=== PATIENT | male | born 1965 | race Caucasian/White ===

== ENCOUNTER 2019-04-03 07:07 | Day surgery (SDC) | payer BC, OTHER ==
[~2019-04-03] VITALS: Ht 180.3 cm; Wt 69.3 kg
[~2019-04-03 07:07] MED LIST: SYNTHROID
[2019-04-03 07:58] VITALS: Ht 180.3 cm; Wt 69.3 kg
[2019-04-03 08:10] VITALS: BP 143/77; PULSE 104; RESP 16
[2019-04-03] MEDS ORDERED: LIDOCAINE 2% (SDV) 5 ML INJ ONE (08:15)
[2019-04-03] MEDS ORDERED: PROPOFOL 60 ML ONE (08:15)
--- NOTE | 2019-04-03 08:15 | PREAC ---
Date/Time of Note Date/Time of Note DATE: 04/03/19 TIME: 08:13 Anesthesia Eval and Record Evaluation Time Pre-Procedure Interview DATE: 04/03/19 TIME: 08:13 Age 54 Sex male NPO: 8 hrs Preoperative diagnosis Colon screening Planned procedure Colonoscopy Past Medical History Past Medical History: Includes Endo: Hypothyroid Surgery & Anesthesia Issues No known issue Meds Anticoagulation: No Beta David within 24 hr: No Reason Beta David not given: Pt. not on B-David Reported Medications [Synthroid] No Conflict Check 04/03/19 Meds reviewed: Yes Allergies Coded Allergies: Sulfa (Sulfonamide Antibiotics) (Verified Allergy, Intermediate, 04/03/19) Allergies Reviewed: Yes Labs/Studies Labs Reviewed: Reviewed by anesthesiologist test: N/A Studies: ECG Pre-procedure Exam Last vitals BP:112/67, P:67, Spo2:100%, T:98,9 Airway: Adequate mouth opening, Adequate thyromental dist Mallampati: Mallampati II Teeth: Normal Lung: Normal Heart: Normal ASA Physical Status ASA physical status: 2 Emergency: None Planned Anesthetic General/MAC: MAC Planned Pain Management Parenteral pain med Pre-operative Attestations Prior to commencing anesthesia and surgery, the patient was re-evaluated, there was verification of: *The patient's identity *The results of appropriate recent lab work and preoperative vital signs *The above evaluation not changing prior to induction *Anesthetic plan, risk benefits, alternative and complications discussed with patient/family; questions answered; patient/family understands, accepts and wishes to proceed. RAMEZ KEE MD Apr 03, 2019 08:15
--- NOTE | 2019-04-03 08:45 | PAC ---
Date/Time of Note Date/Time of Note DATE: 04/03/19 TIME: 08:44 Post-Anesthesia Notes Post-Anesthesia Note Activity: WNL Respiratory function: WNL Cardiovascular function: WNL Mental status: Baseline Pain reasonably controlled: Yes Hydration appropriate: Yes Nausea/Vomiting absent: Yes Comments BP:112/56, P:67, Spo2:100%, T:98,7 RAMEZ KEE MD Apr 03, 2019 08:45
[2019-04-03 09:05] VITALS: BP 118/69; RESP 16
== END 2019-04-03 09:57 | disposition home or self-care (01) ==
LOC: GIL 07:07
PROVIDERS: ATTEND Internal Medicine Gastroenterology
DX: Z12.11 Encounter for screening for malignant neoplasm of colon (principal); D12.8 Benign neoplasm of rectum; K57.30 Diverticulosis of large intestine without perforation or abscess without bleeding; K64.4 Residual hemorrhoidal skin tags; E03.9 Hypothyroidism, unspecified
CPT/HCPCS: 45380; 88305; Z7610